=== PATIENT | female | born 1985 | race Two or more races ===

== ENCOUNTER 2018-02-01 09:32 | Inpatient (IN) | payer OTHER ==
[~2018-02-01] VITALS: Ht 170.2 cm; Wt 79.4 kg
[~2018-02-01 09:32] MED LIST: ORPH100T PO; TRAMADOL HCL-AP1 TAB PO
== END 2018-02-03 17:43 | disposition home or self-care (01) | DRG 153 ==
LOC: ER 09:32 → SEC-K 02-02 08:32 → MEDJ 02-02 08:32
DX: J03.80 Acute tonsillitis due to other specified organisms (principal); M27.2 Inflammatory conditions of jaws; E86.0 Dehydration; E11.9 Type 2 diabetes mellitus without complications; J32.0 Chronic maxillary sinusitis

== ENCOUNTER 2018-05-16 15:39 | Emergency (ER) | payer OTHER ==
[~2018-05-16] VITALS: Ht 170.2 cm; Wt 74.8 kg
[2018-05-16] MEDS ORDERED: METFORMIN HCL500 MG (16:04)
[2018-05-16] MEDS ORDERED: AMARYL (16:05)
== END 2018-05-16 18:44 | disposition home or self-care (01) ==
LOC: ER 15:39
DX: R00.0 Tachycardia, unspecified (principal); F43.0 Acute stress reaction; F41.1 Generalized anxiety disorder

== ENCOUNTER 2018-12-02 07:55 | Outpatient (CLI) | payer OTHER ==
[~2018-12-02 07:55] MED LIST changes: +AMARYL; +METFORMIN HCL500 MG
== END 2018-12-02 07:56 | disposition home or self-care (01) ==
LOC: NUCLEAR 07:55
DX: I87.2 Venous insufficiency (chronic) (peripheral) (principal)

== ENCOUNTER 2019-04-27 18:41 | Emergency (ER) | payer OTHER ==
[~2019-04-27] VITALS: Ht 170.2 cm; Wt 79.4 kg
[2019-04-27] MEDS ORDERED: TILENOR (19:27)
== END 2019-04-27 22:06 | disposition home or self-care (01) ==
LOC: ER 18:41
DX: R51 Headache (principal); M62.838 Other muscle spasm

== ENCOUNTER 2022-10-04 14:30 | Emergency (ER) | payer OTHER ==
[~2022-10-04] VITALS: Ht 170.2 cm; Wt 77.1 kg
[~2022-10-04 14:30] MED LIST changes: +TILENOR
[2022-10-04] MEDS ORDERED: MOUNJARO5 MG/0.5 M SQ (15:04)
[2022-10-04] MEDS ORDERED: ATORVASTATIN CA10 MG (15:05)
== END 2022-10-04 18:05 | disposition home or self-care (01) ==
LOC: ER 14:30
DX: J10.1 Influenza due to other identified influenza virus with other respiratory manifestations (principal); R53.81 Other malaise; Z20.822 Contact with and (suspected) exposure to COVID-19; Z88.6 Allergy status to analgesic agent